=== PATIENT | female | born 1975 | race Caucasian/White ===

== ENCOUNTER → 2023-06-23 13:07 | Outpatient (REF) | payer OTHER, BC, SELFPAY | LOC: RAD 13:07 | PROVIDERS: ATTENDING PHYSICIAN Internal Medicine Rheumatology; FAMILY PHYSICIAN Internal Medicine | DX: M25.541 Pain in joints of right hand (principal); M25.542 Pain in joints of left hand; L40.59 Other psoriatic arthropathy | CPT/HCPCS: 73100; 73130 ==

== ENCOUNTER 2023-08-10 13:30 | Emergency (ER) | payer OTHER, BC, SELFPAY ==
[2023-08-10 13:33] VITALS: BP 131/89
[2023-08-10 13:57] LABS: % Basophils 0.9 % (0-2); % Eosinophils 2.4 % (0-6); % Immature Granulocytes 0.5 % (0-0.5); % Lymphocytes 26.3 % (20.5-51.1); % Monocytes 6.2 % (1.7-9.3); % Neutrophils 63.7 % (42.2-75.2); Absolute Basophils 0.1 10^3/uL (0-0.2); Absolute Eosinophils 0.2 10^3/uL (0-0.7); Absolute Immature Granulocytes 0.1 10^3/uL (0-0.05); Absolute Lymphocytes 2.5 10^3/uL (1.2-3.4); Absolute Monocytes 0.6 10^3/uL (0.1-0.6); Hematocrit 42.8 % (37.0-47.0); Hemoglobin 15.3 g/dL (12.0-16.0); Mean Corp Hgb Conc. 35.7 g/dL (33.0-37.0); Mean Corpuscular Hgb 32.3 pg (27.0-31.0); Mean Corpuscular Volume 90.3 fL (81.0-99.0); Mean Platelet Volume 9.5 fL (7.4-10.4); Nucleated Red Blood Cells % 0 %; Platelet Count 270 10^3/uL (130-400); Red Blood Cell Count 4.74 10^6/uL (4.20-5.40); Red Cell Dist. Width 12.6 % (11.5-14.5); White Blood Cell Count 9.4 10^3/uL (4.8-10.8)
[2023-08-10 13:58] LABS: Urine Albumin Negative (Neg - Trace); Urine Bilirubin Negative (Negative); Urine Character Clear (Clear); Urine Color Yellow; Urine Glucose Negative (Negative); Urine Ketone Negative (Negative); Urine Leukocyte Trace (Negative); Urine Nitrite Negative (Negative); Urine Occult Blood Negative (Negative); Urine Specific Gravity 1.015 (<1.030); Urine Urobilinogen Negative (Neg - 1+); Urine pH 6.5 (5.0-9.0)
[2023-08-10 14:17] LABS: ALT (SGPT) 16 U/L (0-35); AST (SGOT) 21 U/L (14-36); Albumin 4.6 g/dl (3.5-5.0); Alkaline Phosphatase 60 U/L (38-126); Blood Urea Nitrogen 17 mg/dl (7-17); Calcium 10.2 mg/dl (8.4-10.2); Carbon Dioxide 25 mmol/L (22-30); Chloride 105 mmol/L (98-107); Glucose 108 mg/dl (70-99); Potassium 4.4 mmol/L (3.5-5.1); Sodium 135 mmol/L (135-145); Total Protein 7.1 g/dl (6.3-8.2); eGFR > 60.00
[2023-08-10 14:34] LABS: Urine Bacteria Many (Negative); Urine Red Blood Cell 0-2 /HPF (0-2); Urine Squamous Cell 0-2 /LPF (Few); Urine White Cell 0-2 /HPF (0-5)
--- NOTE | 2023-08-10 15:06 | ED.GENMED ---
History of Present Illness
General
Chief Complaint: Urinary Symptoms
Time Seen by Provider: 08/10/23 14:52
Travel History
Have you had any contact with someone who has COVID-19?: No
Do you have any symptoms of coronavirus? Fever > 100 degrees, chills, cough, shortness of breath, sore throat, loss of taste or smell, muscle aches, or headache?: No
History of Present Illness
History of Present Illness:
48-year-old female with history of psoriatic arthritis on [place] presents to the emergency department for evaluation of recurrent UTI symptoms. States that approximate 10 days ago she was treated at urgent care for UTI with nitrofurantoin for 5
days. States that the symptoms improved however 3 days later developed again. Symptoms have been worsening since new onset with bilateral lateral low back pain and vaginal discomfort. Denies any objective fevers or chills.
Past History
Past History
ED Past Medical History: HTN and Other (Scioritic arthritis)
ED Past Surgical History:
Social History
Tobacco: Non-smoker
Alcohol: Occasional
Drug: None
Personal:
Living: with family
Employment: Employed
Family History
Family History: Other
Review of Systems
Review of Systems
Allergies reviewed?: Yes
All Other Systems: ROS reviewed and negative except as documented in HPI and ROS
Phy Exam
Physical Exam
Physical Exam:
GEN: Well appearing, NAD, WDWN
HEENT: Oral mucosa moist, no scleral icterus
Cardiac: Regular rate
Lung: No respiratory distress, no tachypnea
MSK: No gross deformity or injuries
Skin: Good color, no pallor or jaundice, no rashes
Neuro: AO x3, moves all extremities freely
Psych: Calm, cooperative
Course
Orders/Labs/Results
Orders:
Orders
08/10/23 13:41
Complete Blood Count/With Diff Urgent
Comprehensive Metabolic Panel Urgent
Urinalysis Reflex To Culture Urgent
Date Specimen was Collected: 08/10/23
Time Specimen was Collected: 13:36
Urine Microscopic Reflex Cult Urgent
Urine Culture Urgent
ASHLEY Source: U
Specimen Description:
Date Specimen was Collected: 08/10/23
Time Specimen was Collected: 13:36
Abnormal Lab Results
08/10/23
13:41
MCH 32.3 H pg
(27.0-31.0)
Abs Immat Gran (auto) 0.1 H 10^3/uL
(0-0.05)
Glucose 108 H mg/dl
(70-99)
Leukocyte Esterase Rfl Trace A
(Negative)
Urine Bacteria (Reflex) Many A
(Negative)
08/10/23 13:41
08/10/23 13:41
Vital Signs
Initial and Last Documented VS:
Initial Vital Signs
Temp Pulse Resp BP Pulse Ox
98.9 F 70 18 131/89 96
08/10/23 13:33 08/10/23 13:33 08/10/23 13:33 08/10/23 13:33 08/10/23 13:33
Last Documented Vital Signs
Temp Pulse Resp BP Pulse Ox
98.9 F 70 18 131/89 96
08/10/23 13:33 08/10/23 13:33 08/10/23 13:33 08/10/23 13:33 08/10/23 13:33
MDM/Problems Addressed
MDM/Problems Addressed:
Patient appears clinically well and has normal vital signs and normal labs. Urinalysis does show large bacteria thus given her symptoms we will treat, may be recurrent UTI in the setting of her monoclonal antibody use for psoriatic arthritis versus
developing pyelonephritis. I did discuss with the urgent care and was given the results of her urine culture report that showed pansensitive E. coli, will treat with cephalosporins for a 10-day course
*Critical Care Note
Total Time (30-74mins, 75-104mins- exclusive of procedures): Not Applicable
ED Attending Note
-
Portions of this chart may have been created with voice recognition software.� Occasional wrong word or��sound alike� substitutions may have occurred due to the inherent limitations of voice recognition software.
Discharge Plan
Departure
Patient Disposition: Home (Routine Discharge)
Date of Disposition: 08/10/23
Time of Disposition: 15:07
Patient with high blood pressure during this ER visit?: No
Discharge Problem:
Urinary tract infection
Instructions: Urinary Tract Infection, Adult (DC)
Prescriptions:
New
cefdinir 300 mg capsule
300 mg PO BID 10 Days Qty: 20 0RF
No Action
methotrexate sodium 2.5 MG tablet
10 mg PO SA
folic acid 1 MG tablet
1 mg PO DAILY
vitamin B complex Capsule
1 cap PO DAILY
Zyrtec 10 mg Capsule
10 mg PO DAILY
Taltz Autoinjector 80 mg/mL Auto-Injector
80 mg SC Q4W
Trulance 3 mg Tablet
3 mg PO DAILY
Co Q-10
1 tab PO DAILY
Fish Oil
1 dose PO DAILY
Vitamin C
1 dose PO DAILY
Vitamin D3
1 tab PO DAILY
lutein
1 dose PO DAILY
magnesium
1 dose PO DAILY
zinc
1 dose PO DAILY
Referrals:
Josie Velásquez DO [Family Provider] -
Interventions
Interventions:
*Risk Screen - Suicide Last Done: 08/10/23 13:33
*General Assessment Last Done: 08/10/23 13:33
*Neglect/Abuse Screening Last Done: 08/10/23 13:33
*ED COVID-19 Vaccine History Last Done: 08/10/23 13:33
*Nursing Disposition Last Done: 08/10/23 15:16
Discharge Date and Time
Discharge Date/Time: 08/10/23 15:17
Print Language: FILIPINO
== END 2023-08-10 15:17 | disposition home or self-care (01) ==
LOC: EMR 13:30
PROVIDERS: Emergency Medicine; EMERGENCY PHYSICIAN Emergency Medicine; FAMILY PHYSICIAN Internal Medicine
DX: N39.0 Urinary tract infection, site not specified (principal); B96.20 Unspecified Escherichia coli [E. coli] as the cause of diseases classified elsewhere
CPT/HCPCS: 99283; 80053; 81003; 81015; 85025; 87086; 87088; 87186

== ENCOUNTER 2024-02-04 10:01 | Emergency (ER) | payer OTHER, BC, SELFPAY ==
--- NOTE | 2024-02-04 10:02 | ED.GENMED ---
ED Provider Triage
<Carmella Thomson PA-C - Last Filed: 02/04/24 10:06>
-
Patient seen by provider in Triage?: Seen in Triage
Attestation: A medical screening examination has been initiated by a qualified medical provider. Based on the assessment performed at this time, it has been determined that an emergent medical condition may exist and the patient has been informed
that further medical evaluation and possible additional diagnostic testing may be needed.
HPI: 48yoF here with chest pain x 4 days. Intermittent pains. Pain across chest into back. Pain worse today. Also c/o shortness of breath and generalized itching.
GENERAL: Alert , in no apparent distress
EYE: No visual abnormalities.
NECK: Trachea midline
ENT: No visible abnormalities.
LUNGS: No acute respiratory distress
NEUROLOGICAL: Alert and oriented
SKIN: Skin intact. No visible changes.
MUSCULOSKELETAL: Moving extremities normally
PSYCH: Normal and appropriate interaction.
This is a medical evaluation conducted in person to initiate diagnostic evaluation and provide initial therapeutics. Please see further documentation by the treating clinician.
Cardiac labs, EKG, and CXR ordered.
History of Present Illness
<Carmella Thomson PA-C - Last Filed: 02/04/24 10:06>
General
Chief Complaint: Chest Pain
Time Seen by Provider: 02/04/24 11:02
<Jesus Nagy DO - Last Filed: 02/04/24 12:58>
General
Source: patient
Exam Limitations: none
History of Present Illness
History of Present Illness:
48-year-old female who presents with a rash that began Thursday. She then followed up with chest pain that began Thursday. Symptoms have been ongoing until today (). Patient states that the symptoms are constant but do seem to wax and wane.
She has been taken occasional Benadryl at home. Pain in her chest is sort of across her chest under her breast bilaterally and in the middle.
Past History
<SHERRIE Renee-C - Last Filed: 02/04/24 10:06>
Past History
ED Past Medical History: HTN and Other (Scioritic arthritis)
ED Past Surgical History:
Social History
Tobacco: Non-smoker
Alcohol: Occasional
Drug: None
Personal:
Living: with family
Employment: Employed
Family History
Family History: Other
<Jesus Nagy DO - Last Filed: 02/04/24 12:58>
Past History
ED Past Medical History: Other (psoriatic arthritis)
Phy Exam
<Jesus Nagy DO - Last Filed: 02/04/24 12:58>
Physical Exam
Physical Exam:
CONSTITUTIONAL Patient alert and oriented to person, place and time. Well-appearing. Vital signs reviewed.
HEAD atraumatic, normocephalic.
EYES eyelids normal to inspection, Extraocular muscles intact, Conjunctiva normal, Sclera normal.
NECK normal range of motion, Trachea midline, no jugular venous distention.
RESPIRATORY CHEST No respiratory distress noted, Chest expansion equal, Bilateral breath sounds clear.
CARDIOVASCULAR regular rate and rhythm, Heart sounds normal.
ABDOMEN abdomen nontender, Bowel sounds normal. No distention.
BACK normal inspection, no obvious deformities
UPPER EXTREMITY range of motion normal, Motor strength normal, no cyanosis, no edema.
LOWER EXTREMITY range of motion normal, Motor strength normal, no cyanosis, no edema.
NEURO Speech normal, No focal motor deficits, [place] coma scale 15, Memory normal, Cranial Nerves intact to screening exam.
SKIN skin warm, dry. She does have hives noted on the neck, trunk and a little bit to her arms.
Scores
<Jesus Nagy DO - Last Filed: 02/04/24 12:58>
PESI
Age: 82
Course
<Carmella Thomson PA-C - Last Filed: 02/04/24 10:06>
Orders/Labs/Results
Orders:
Orders
02/04/24 10:02
EKG [Electrocardiogram (*1)] Urgent
Reason for Study: Chest Pain
EKG- Treatment ONCE
02/04/24 10:05
CR Chest - 2 Views Urgent
Comment:
Reason For Exam: CP
02/04/24 10:11
Complete Blood Count/With Diff Urgent
Comprehensive Metabolic Panel Urgent
Troponin I Urgent
02/04/24 11:47
Prednisone [Deltasone] 50 mg PO NOW STA
Sucralfate Suspension [Carafate Suspension] 1 gm PO NOW STA
02/04/24 11:49
Famotidine [Pepcid] 20 mg PO NOW STA
02/04/24 12:33
Diphenhydramine [Benadryl] 50 mg PO NOW STA
Abnormal Lab Results
02/04/24
10:11
Hgb 16.3 H g/dL
(12.0-16.0)
MCH 32.6 H pg
(27.0-31.0)
Abs Immat Gran (auto) 0.1 H 10^3/uL
(0-0.05)
Absolute Neuts (auto) 6.9 H 10^3/uL
(1.4-6.5)
BUN 22 H mg/dl
(7-17)
02/04/24 10:11
02/04/24 10:11
Vital Signs
Initial and Last Documented VS:
Initial Vital Signs
Temp Pulse Resp BP Pulse Ox
98.1 F 60 18 139/87 100
02/04/24 10:03 02/04/24 10:03 02/04/24 10:03 02/04/24 10:03 02/04/24 10:03
Last Documented Vital Signs
Temp Pulse Resp BP Pulse Ox
98.1 F 70 16 123/96 100
02/04/24 10:03 02/04/24 11:05 02/04/24 12:19 02/04/24 12:19 02/04/24 12:19
<Jesus Nagy, DO - Last Filed: 02/04/24 12:58>
Orders/Labs/Results
Orders:
Orders
02/04/24 10:02
EKG [Electrocardiogram (*1)] Urgent
Reason for Study: Chest Pain
EKG- Treatment ONCE
02/04/24 10:05
CR Chest - 2 Views Urgent
Comment:
Reason For Exam: CP
02/04/24 10:11
Complete Blood Count/With Diff Urgent
Comprehensive Metabolic Panel Urgent
Troponin I Urgent
02/04/24 11:47
Prednisone [Deltasone] 50 mg PO NOW STA
Sucralfate Suspension [Carafate Suspension] 1 gm PO NOW STA
02/04/24 11:49
Famotidine [Pepcid] 20 mg PO NOW STA
02/04/24 12:33
Diphenhydramine [Benadryl] 50 mg PO NOW STA
Abnormal Lab Results
02/04/24
10:11
Hgb 16.3 H g/dL
(12.0-16.0)
MCH 32.6 H pg
(27.0-31.0)
Abs Immat Gran (auto) 0.1 H 10^3/uL
(0-0.05)
Absolute Neuts (auto) 6.9 H 10^3/uL
(1.4-6.5)
BUN 22 H mg/dl
(7-17)
02/04/24 10:11
02/04/24 10:11
Vital Signs
Initial and Last Documented VS:
Initial Vital Signs
Temp Pulse Resp BP Pulse Ox
98.1 F 60 18 139/87 100
02/04/24 10:03 02/04/24 10:03 02/04/24 10:03 02/04/24 10:03 02/04/24 10:03
Last Documented Vital Signs
Temp Pulse Resp BP Pulse Ox
98.1 F 70 16 123/96 100
02/04/24 10:03 02/04/24 11:05 02/04/24 12:19 02/04/24 12:19 02/04/24 12:19
<Jesus Nagy DO - Last Filed: 02/04/24 12:58>
MDM/Problems Addressed
MDM/Problems Addressed:
Hives, chest pain
<Jesus Nagy DO - Last Filed: 02/04/24 12:58>
*Radiology
Radiology exam reviewed: radiology read reviewed and all reviewed NAD by ED Provider
*Pulse Oximetry
Patient hypoxic: no
*EKG
Interpreted by ED Provider?: Yes
Interpretation: normal
Rate: bradycardiac
Rhythm: sinus
[place]: normal axis
Interval: normal interval
QRS Pattern: normal QRS
Ischemia: no ischemia
*Eggs Inspector Interpretation
Rate: normal
Interpretation: normal
Rhythm: sinus
*Critical Care Note
Total Time (30-74mins, 75-104mins- exclusive of procedures): Not Applicable
Data Reviewed
Source: patient
Further Testing Considered But Not Given:
Consider D-dimer but no tachycardia or shortness of breath. No hypoxia
<DO Yumi Hsieh Last Filed: 02/04/24 12:58>
Patient Management
Escalation/DeEscalation of care consider admission/obs:
Chest pain x 4 days and troponin EKG completely unremarkable. Do not suspect ACS. Do not suspect PE. She does have hives. Will advise daily antihistamine and trial course of steroids. It is noted that she had this previously back in 2020.
Interestingly she just returned from [place] and at that time she had just returned from [place]. Patient is unaware of anything new that she has been using.
ED Attending Note
<Carmella Thomson PA-C - Last Filed: 02/04/24 10:06>
-
Portions of this chart may have been created with voice recognition software.� Occasional wrong word or��sound alike� substitutions may have occurred due to the inherent limitations of voice recognition software.
Discharge Plan
Departure
Patient Disposition: Home (Routine Discharge)
Date of Disposition: 02/04/24
Time of Disposition: 12:52
Patient with high blood pressure during this ER visit?: Yes
Discharge Problem:
Chest pain, Hives
Instructions: Hives, Chest Pain PCP Follow Up, BLOOD PRESSURE
Prescriptions:
New
pantoprazole [Protonix] 40 mg tablet,delayed release (DR/EC)
40 mg PO DAILY Qty: 30 0RF
Rx Instructions:
Please take 30 minutes prior to eating or drinking anything in the morning.
prednisone 10 mg Tablet
See Rx Instructions .ROUTE .COMPLEX Qty: 45 0RF
Rx Instructions:
Take By Mouth:
50 mg daily x3 days, 40 mg daily x3 days,
30 mg daily x3 days, 20 mg daily x3 days,
10 mg daily x3 days
No Action
methotrexate sodium 2.5 MG tablet
10 mg PO SA
folic acid 1 MG tablet
1 mg PO DAILY
vitamin B complex Capsule
1 cap PO DAILY
Zyrtec 10 mg Capsule
10 mg PO DAILY
Taltz Autoinjector 80 mg/mL Auto-Injector
80 mg SC Q4W
Trulance 3 mg Tablet
3 mg PO DAILY
Co Q-10
1 tab PO DAILY
Fish Oil
1 dose PO DAILY
Vitamin C
1 dose PO DAILY
Vitamin D3
1 tab PO DAILY
lutein
1 dose PO DAILY
magnesium
1 dose PO DAILY
zinc
1 dose PO DAILY
cefdinir 300 mg capsule
300 mg PO BID 10 Days Qty: 20 0RF
Referrals:
Josie Velásquez DO [Family Provider] -
Activity Restrictions/Additional Instructions:
Please see your doctor in follow-up in the next 3 to 5 days. Return if worsening symptoms, shortness of breath, fevers, or any other concerns. Use Benadryl as needed.
Interventions
Interventions:
*Risk Screen - Suicide Last Done: 02/04/24 10:03
*General Assessment Last Done: 02/04/24 10:03
*Neglect/Abuse Screening Last Done: 02/04/24 10:03
ED- Fall Risk Assessment Last Done: 02/04/24 11:09
*ED COVID-19 Vaccine History Last Done: 02/04/24 10:03
ED- Cardiac Assessment Last Done: 02/04/24 11:09
Discharge Date and Time
Print Language: AZERI
[2024-02-04 10:03] VITALS: BP 139/87
[2024-02-04 10:20] LABS: % Basophils 0.6 % (0-2); % Eosinophils 2.2 % (0-6); % Immature Granulocytes 0.5 % (0-0.5); % Lymphocytes 21.5 % (20.5-51.1); % Monocytes 6.2 % (1.7-9.3); Absolute Basophils 0.1 10^3/uL (0-0.2); Absolute Eosinophils 0.2 10^3/uL (0-0.7); Absolute Immature Granulocytes 0.1 10^3/uL (0-0.05); Absolute Lymphocytes 2.1 10^3/uL (1.2-3.4); Absolute Monocytes 0.6 10^3/uL (0.1-0.6); Absolute Neutrophils 6.9 10^3/uL (1.4-6.5); Hematocrit 46.6 % (37.0-47.0); Hemoglobin 16.3 g/dL (12.0-16.0); Mean Corpuscular Hgb 32.6 pg (27.0-31.0); Mean Corpuscular Volume 93.2 fL (81.0-99.0); Mean Platelet Volume 9.5 fL (7.4-10.4); Nucleated Red Blood Cells % 0 %; Platelet Count 267 10^3/uL (130-400); Red Cell Dist. Width 12.2 % (11.5-14.5); White Blood Cell Count 9.9 10^3/uL (4.8-10.8)
[2024-02-04 10:44] LABS: ALT (SGPT) 19 U/L (0-35); AST (SGOT) 22 U/L (14-36); Albumin 4.6 g/dl (3.5-5.0); Alkaline Phosphatase 56 U/L (38-126); Blood Urea Nitrogen 22 mg/dl (7-17); Calcium 10.1 mg/dl (8.4-10.2); Carbon Dioxide 27 mmol/L (22-30); Chloride 103 mmol/L (98-107); Glucose 88 mg/dl (70-99); Potassium 4.7 mmol/L (3.5-5.1); Sodium 140 mmol/L (135-145); eGFR > 60.00
[2024-02-04 10:48] LABS: Troponin I < 0.012 ng/ml
[2024-02-04 11:05] VITALS: BP 138/77
[2024-02-04] MEDS: PEPCID 20 MG PO (11:57)
[2024-02-04] MEDS: CARAFATE SUSPENSION 1 GM PO (11:57)
[2024-02-04] MEDS: DELTASONE 50 MG PO (11:57)
[2024-02-04 12:19] VITALS: BP 123/96
[2024-02-04] MEDS: BENADRYL 50 MG PO (12:36)
== END 2024-02-04 13:05 | disposition home or self-care (01) ==
LOC: EMR 10:01
PROVIDERS: Physician Assistant; EMERGENCY PHYSICIAN Emergency Medicine; FAMILY PHYSICIAN Internal Medicine
DX: R07.89 Other chest pain (principal); L50.9 Urticaria, unspecified; R06.02 Shortness of breath; I10 Essential (primary) hypertension
CPT/HCPCS: 99283; 71046; 80053; 84484; 85025; 93005; 99284

== ENCOUNTER → 2024-02-22 10:32 | Outpatient (REF) | payer OTHER, BC, SELFPAY | LOC: RCS 10:32 | PROVIDERS: ATTENDING PHYSICIAN Internal Medicine Cardiovascular Disease; FAMILY PHYSICIAN Internal Medicine | DX: R00.2 Palpitations (principal); R07.89 Other chest pain | CPT/HCPCS: 93017 ==

== ENCOUNTER → 2024-06-10 09:16 | Outpatient (REF) | payer OTHER, BC, SELFPAY | LOC: RAD 09:16 | PROVIDERS: ATTENDING PHYSICIAN Physician Assistant; FAMILY PHYSICIAN Internal Medicine | DX: L40.50 Arthropathic psoriasis, unspecified (principal); L40.9 Psoriasis, unspecified; M25.50 Pain in unspecified joint; M79.641 Pain in right hand; M79.642 Pain in left hand | CPT/HCPCS: 72200; 73130 ==

== ENCOUNTER → 2024-08-26 10:33 | Outpatient (REF) | payer OTHER, BC, SELFPAY | LOC: RAD 10:33 | PROVIDERS: ATTENDING PHYSICIAN Internal Medicine; FAMILY PHYSICIAN Internal Medicine | DX: M81.0 Age-related osteoporosis without current pathological fracture (principal) | CPT/HCPCS: 77080 ==